=== PATIENT | female | born 1995 | race Two or more races ===

== ENCOUNTER → 2024-02-28 | Outpatient (CLI) | payer OTHER, MEDICAID, SELFPAY ==
--- NOTE | 2024-02-28 10:30 | XR_ITS ---
Examination: CT abdomen with intravenous contrast CT pelvis with intravenous contrast 2-D coronal reconstructions 2-D sagittal reconstructions Date and time of exam:February 28, 2024 1321 hours INDICATIONS: Right upper abdominal pain post gallbladder surgery 2023. CTDI: vol (mGy) 9.64 DLP: (mGycm) 539 Technique: Multiple axial sections of the abdomen and pelvis have been obtained. 64 slice high-resolution scanner used. 3 mm axial sections have been obtained, post intravenous injection 60 cc [id number] 2-D sagittal, coronal reconstructions obtained. Low dose protocols were performed. One or more of the following dose reduction techniques were used; automated exposure control, adjustment of the mA and/or KV according to patient size, use of iterative reconstruction technique. Findings: No focal liver or splenic lesions Absent gallbladder Common bile duct 11 mm no definite common bile duct stones No pancreatic mass or peripancreatic edema Normal adrenal glands No renal or ureteral calculi, no hydronephrosis Aorta normal size Normal appendix 10 mm fat-containing umbilical hernia No bowel obstruction No diverticulitis Anteverted uterus Contracted urinary bladder The osseous structures are intact IMPRESSION: Absent gallbladder Common bile duct 11 mm, no common bile duct stones If biliary colic is a clinical consideration, suggest MRCP follow-up
[2024-02-28 11:45] LABS: HCG Qualitative,Urine Negative
== END | disposition home or self-care (01) ==
LOC: CCTX 10:55 → COPL 11:03
PROVIDERS: PCP Nurse Practitioner Family; Referring Provider Nurse Practitioner Family; Visit Provider Radiology Diagnostic Radiology
DX: R10.10 Upper abdominal pain, unspecified (principal); Z90.49 Acquired absence of other specified parts of digestive tract; Z32.00 Encounter for pregnancy test, result unknown
CPT/HCPCS: 74177; 81025; A4649; Q9967